=== PATIENT | male | born 1970 | race Caucasian/White ===

== ENCOUNTER 2023-12-01 13:52 | Emergency (ER) | payer BC, SELFPAY ==
[2023-12-01] VITALS (15 sets, daily range): BP systolic 148–170; BP diastolic 92–96; PULSE 87–99; RESP 11–29; TEMP 36.7; O2SAT 98–100; BMI 29.8
--- NOTE | 2023-12-01 14:00 | ECG_ITS ---
The [facility] Test Date: 2023-12-01 Pat Name: CASSY LUCIA Department: Room: - Gender: Male [employer] Hel[employer]: : 1970 Requested By: ELLEN WIN Order Number: [id number] Reading MD: ELLEN WIN Measurements Intervals [place] Rate: 89 P: 43 ND: 154 QRS: 27 QRSD: 82 T: 35 QT: 340 QTc: 387 Interpretive Statements 1100 Sinus rhythm 9110 normal ECG No previous ECG available for comparison Electronically Signed On 12-03-2023 5:31:47 EST by ELLEN WIN
[2023-12-01 14:20] LABS: Basophils Percent Auto 0.5 % (0.2-2.0); Eosinophils Absolute Auto 0.1 10^3/uL (0.0-0.7); Eosinophils Percent Auto 1.3 % (0.9-7.0); Hemoglobin 14.5 g/dL (14.0-18.0); Immature Granulocytes Abs Auto 0.01 10^3/uL (0.00-0.03); Immature Granulocytes Pct Auto 0.2 % (0.0-0.5); Lymphocytes Absolute Auto 2.1 10^3/uL (1.2-3.8); Lymphocytes Percent Auto 32.6 % (20.5-60.0); Mean Corpuscular HGB Conc 33.7 g/dL (29.9-35.2); Mean Corpuscular Hemoglobin 29.1 pg (25.9-34.0); Mean Corpuscular Volume 86.3 fL (80.0-94.0); Monocytes Absolute Auto 0.3 10^3/uL (0.3-0.8); Monocytes Percent Auto 5.2 % (1.7-12.0); Neutrophils Absolute Auto 3.8 10^3/uL (1.4-6.5); Neutrophils Percent Auto 60.2 % (43.0-75.0); Platelet Count 180 10^3/uL (150-450); Red Blood Count 4.98 10^6/uL (4.70-6.10); Red Cell Distribution Width 12.9 % (11.0-15.0); White Blood Count 6.4 10^3/uL (4.0-11.0)
[2023-12-01] MEDS: 0.9 % SODIUM CHLORIDE 1,000 ML 999 ML IV (14:20)
--- NOTE | 2023-12-01 14:25 | ED.ARRPALP1 ---
HPI - Arrhythmia/Palpitations General Chief Complaint: Arrhythmia/Palpitations Stated Complaint: FAST HEART RATE Time Seen by Provider: 12/01/23 13:59 Source: patient Mode of arrival: walk-in History of Present Illness HPI narrative: Patient is a 53-year-old male with a history of hypercholesterolemia and gout who presents for evaluation of palpitations and dizziness. Patient states he was driving 45 minutes prior to arrival when he had a sensation that his heart was racing and he had mild tingling to the right hand. He states he felt lightheaded. He has not had any headaches, visual loss, chest pain, shortness of breath. He denies any recent illness. No nausea or vomiting. He denies peripheral edema. He denies tobacco abuse. He has a family history of coronary artery disease. He states at this time all symptoms have resolved and he feels fine . Related Data Home Medications Medication Instructions Recorded Confirmed rosuvastatin 5 mg tablet (Crestor) 5 mg PO DAILY 12/01/23 12/01/23 Allergies Allergy/AdvReac Type Severity Reaction Status Date / Time prednisone Allergy Severe Verified 12/01/23 13:57 Review of Systems ROS Constitutional Denies: fever or chills Eyes Denies: change in vision Ears, nose, mouth, and throat Denies: throat pain or nasal congestion Cardiovascular Reports: palpitations; Denies: chest pain Respiratory Denies: shortness of breath or cough Gastrointestinal Denies: nausea or vomiting Musculoskeletal Denies: back pain Integumentary/Breast Denies: rash Neurological Reports: dizziness; Denies: headache Endocrine Denies: excessive urination [facility] Social History Smoking status: Former smoker Exam Narrative Exam Narrative: Gen.: Awake, alert, in no distress Head: Normocephalic, atraumatic ENT: Moist mucous membranes Respiratory: No respiratory distress, lungs clear bilaterally Cardio: Regular rate and rhythm Extremities: Moves extremities equally, no pedal edema Psych: Normal mood and affect Neuro: No focal neuro deficit Skin: Warm, dry, intact Constitutional Vital Signs, click to edit/add: Last Vital Signs Temp 98.1 F 12/01/23 13:57 Pulse 87 12/01/23 14:23 Resp 18 12/01/23 14:23 BP 159/95 H 12/01/23 14:23 Pulse Ox 100 02/06/24 14:20 O2 Del Method Room Air 12/01/23 13:57 Course Vital Signs Vital signs: Vital Signs Blood Pressure 169/96 H 12/01/23 13:56 Temperature 98.1 F 12/01/23 13:57 Pulse Rate 87 12/01/23 14:23 Respiratory Rate 18 12/01/23 14:23 Blood Pressure 159/95 H 12/01/23 14:23 Pulse Oximetry 100 12/01/23 14:20 Oxygen Delivery Method Room Air 12/01/23 13:57 MDM - Arrhythmia/Palpitations MDM Narrative Medical decision making narrative: Lab testing within normal limits with the exception of mildly low potassium and high TSH. Free T3 and free T4 were added for the patient. He can follow with additional thyroid workup with his PCP. He maintains normal cardiac monitoring and normal vital signs in the emergency department. EKG, D-dimer, troponin, chest x-ray within normal limits. Patient with no focal medical complaints in the emergency department. He is discharged home to follow-up with his PCP and return to the ER if symptoms change or worsen. Patient reevaluated by attending physician prior to discharge. Medical Records Attestation: I reviewed the patient's medical records. Lab Data Attestation: I reviewed the patient's lab results. Labs: Lab Results 12/01/23 Range/Units 14:10 WBC 6.4 (4.0-11.0) 10^3/uL RBC 4.98 (4.70-6.10) 10^6/uL Hgb 14.5 (14.0-18.0) g/dL Hct 43.0 (42.0-54.0) % MCV 86.3 (80.0-94.0) fL MCH 29.1 (25.9-34.0) pg MCHC 33.7 (29.9-35.2) g/dL RDW 12.9 (11.0-15.0) % Plt Count 180 (150-450) 10^3/uL MPV 13.0 (9.5-13.5) fL Neut % (Auto) 60.2 (43.0-75.0) % Lymph % (Auto) 32.6 (20.5-60.0) % [place] % (Auto) 5.2 (1.7-12.0) % Eos % (Auto) 1.3 (0.9-7.0) % Baso % (Auto) 0.5 (0.2-2.0) % Neut # (Auto) 3.8 (1.4-6.5) 10^3/uL Lymph # (Auto) 2.1 (1.2-3.8) 10^3/uL [place] # (Auto) 0.3 (0.3-0.8) 10^3/uL Eos # (Auto) 0.1 (0.0-0.7) 10^3/uL Baso # (Auto) 0.0 (0.0-0.1) 10^3/uL Abs Immat Gran (auto) 0.01 (0.00-0.03) 10^3/uL Imm/Tot Granulo (auto) 0.2 (0.0-0.5) % PT 10.9 (9.0-11.6) sec INR 1.03 D-Dimer <0.19 (<=0.59) mg/L FEU Sodium 134 L (136-145) mmol/L Potassium 3.2 L (3.5-5.1) mmol/L Chloride 101 (98-107) mmol/L Carbon Dioxide 24.1 (21.0-32.0) mmol/L Anion Gap 12.1 BUN 18.0 (7.0-18.0) mg/dL Creatinine 1.40 H (0.70-1.30) mg/dL Est GFR ( Amer) >60 (>=60) Est GFR (Non-Af Amer) 53 L (>=60) BUN/Creatinine Ratio 12.9 Glucose 177 H (74-106) mg/dL Lactate 2.0 (0.4-2.0) mmol/L Calcium 8.9 (8.5-10.1) mg/dL Magnesium 1.9 (1.8-2.4) mg/dL Total Bilirubin 0.6 (0.2-1.0) mg/dL AST 30 (15-37) U/L ALT 62 (16-63) U/L Alkaline Phosphatase 93 (46-116) U/L Troponin I High Sens <4.0 L (4.0-76.1) pg/mL NT-Pro-B Natriuret Pep 23.0 (<=900.0) pg/mL Total Protein 7.9 (6.4-8.2) g/dL Albumin 4.1 (3.4-5.0) g/dL Globulin 3.8 g/dL Albumin/Globulin Ratio 1.1 TSH 3.840 H (0.358-3.740) uIU/mL Imaging Data Chest x-ray: Attestation: I have reviewed the pertinent imaging results. Radiologist's impression: ITS Impressions Chest X-Ray 12/01/23 14:44 IMPRESSION: 1. Low lung volume examination. No acute cardiopulmonary process. Electronically authenticated by: MILA LEVY Date: 12/01/2023 14:58 ECG Data Attestation: I personally reviewed and interpreted this ECG as follows: (Normal sinus rhythm at a rate of 89, no acute ST elevation or ectopy. EKG reviewed by attending physician) Discharge Plan Discharge Chief Complaint: Arrhythmia/Palpitations Clinical Impression: Palpitations, Elevated TSH Patient Disposition: Home, Self-Care Time of Disposition Decision: 15:10 Condition: Good Prescriptions / Home Meds: No Action rosuvastatin [Crestor] 5 mg tablet 5 mg PO DAILY Instructions: Heart Palpitations (ED) Stand Alone Forms: Portal Instructions Referrals: Physician,Non-Staff, MD [Primary Care Provider] - 1 week
[2023-12-01 14:41] LABS: Alanine Aminotransferase 62 U/L (16-63); Albumin Globulin Ratio 1.1; Albumin Level 4.1 g/dL (3.4-5.0); Alkaline Phosphatase 93 U/L (46-116); Anion Gap 12.1; Aspartate Amino Transferase 30 U/L (15-37); BUN Creatinine Ratio 12.9; Bilirubin Total 0.6 mg/dL (0.2-1.0); Calcium 8.9 mg/dL (8.5-10.1); Carbon Dioxide 24.1 mmol/L (21.0-32.0); Chloride 101 mmol/L (98-107); Estimated GFR (African America >60 (>=60); Estimated GFR (Non-African Ame 53 (>=60); Globulin 3.8 g/dL; Glucose 177 mg/dL (74-106); INR 1.03; Potassium 3.2 mmol/L (3.5-5.1); Prothrombin Time 10.9 sec (9.0-11.6); Sodium 134 mmol/L (136-145); Total Protein 7.9 g/dL (6.4-8.2)
[2023-12-01 14:42] LABS: D Dimer <0.19 mg/L FEU (<=0.59)
--- NOTE | 2023-12-01 14:44 | XR_ITS ---
The [address] [address] Patient Name: CASSY LUCIA MRN: [id number] date: 1970 Sex: M Assigned Patient Location: ER Current Patient Location: ER Accession/Order Number: [id number] Exam Date: 12/01/2023 14:45 Report Date: 12/01/2023 14:58 At the request of: AMADO HUTSON Procedure: XR chest 1V EXAMINATION: XR chest 1V HISTORY: Palpitations COMPARISON: No relevant comparison available. FINDINGS: LUNGS: No significant pulmonary parenchymal abnormalities. VASCULATURE: No increased pulmonary vasculature. PLEURA: No pneumothorax, effusion, or pleural thickening. CARDIAC: No cardiomegaly or cardiac silhouette abnormality. MEDIASTINUM: No visible mass or adenopathy. BONES: No fracture or visible bone lesion. OTHER: Negative. XR/XR chest 1V IMPRESSION: 1. Low lung volume examination. No acute cardiopulmonary process. Electronically authenticated by: MILA LEVY Date: 12/01/2023 14:58
[2023-12-01 14:49] LABS: Magnesium 1.9 mg/dL (1.8-2.4); Troponin I High Sensitivity <4.0 pg/mL (4.0-76.1)
[2023-12-01] MEDS: POTASSIUM CHLORIDE 10 MEQ ER TABLET 40 MEQ PO (14:55)
[2023-12-01 15:08] LABS: Bilirubin Urine NEGATIVE (NEGATIVE); Blood Urine NEGATIVE (NEGATIVE); Clarity Urine CLEAR (CLEAR); Color Urine LT. YELLOW (YELLOW); Glucose Urine UA NEGATIVE (NEGATIVE); Ketones Urine NEGATIVE (NEGATIVE); Leukocyte Esterase Urine NEGATIVE (NEGATIVE); Nitrite Urine NEGATIVE (NEGATIVE); Protein Urine NEGATIVE (NEG/TRACE); Urobilinogen Urine 0.2 EU/dL (0.2-1.0)
[2023-12-01 15:13] LABS: Urine Microscopic Indicated NO
[2023-12-01 15:17] LABS: Free T4 1.04 ng/dL (0.76-1.46)
[2023-12-01 15:35] LABS: Free T3 3.02 pg/mL (2.18-3.98)
== END 2023-12-01 15:25 | disposition home or self-care (01) ==
PROVIDERS: Physician Assistant; Emergency Provider Emergency Medicine
DX: R00.2 Palpitations (principal); R94.6 Abnormal results of thyroid function studies; E78.00 Pure hypercholesterolemia, unspecified; Z79.899 Other long term (current) drug therapy; Z87.891 Personal history of nicotine dependence
CPT/HCPCS: 36415; 71045; 80053; 81003; 83605; 83735; 83880; 84439; 84443; 84481; 84484; 85025; 85378; 85610; 93005; 99285